=== PATIENT | male | born 1965 | race Caucasian/White ===

== ENCOUNTER → 2017-05-14 | Outpatient (CLI) | payer OTHER ==
--- NOTE | 2017-05-15 09:04 | XR ---
Exam: Left humerus complete 2 views left humerus were obtained. HISTORY: Left biceps strain. FINDINGS: No acute fracture or subluxation is identified. Mild degenerative changes are noted in the acromiocla vicular joint. Visualized hemithorax is unremarkable. IMPRESSION: No significant findings.
== END | disposition home or self-care (01) ==
LOC: RADXRMAIN 13:30
PROVIDERS: ATTEND Emergency Medicine
DX: S46.212A Strain of muscle, fascia and tendon of other parts of biceps, left arm, initial encounter (principal)

== ENCOUNTER → 2017-05-20 | Outpatient (CLI) | payer OTHER ==
--- NOTE | 2017-05-20 23:12 | MR ---
EXAMINATION TYPE: MR humerus LT wo con DATE OF EXAM: 05/20/2017 COMPARISON: NONE HISTORY: pain, swelling, brusing on left bicep area Standard multiplanar, multisequence MRI departmental protocol Multiplanar, multisequence images of the left humerus were acquired. FINDINGS: The left humerus has normal signal pattern without evidence of a fracture. Shoulder joint a nd elbow joint appear intact. There is a 6 x 4 cm area of abnormal increased signal on the T1 images in the proximal end of the bic eps muscle belly. This is consistent with intramuscular bruising and hemorrhage. There appears to be fluid extending along the biceps tendon up to the bicipital groove on the humeral head. I see no retr action of the biceps tendon. IMPRESSION: Increased signal in the proximal biceps muscle consistent with bruising and hemorrhage. I do not see evidence of a biceps tendon retraction.
== END | disposition home or self-care (01) ==
LOC: RADMRIMAIN 14:13
PROVIDERS: ATTEND Emergency Medicine
DX: S46.212A Strain of muscle, fascia and tendon of other parts of biceps, left arm, initial encounter (principal)

== ENCOUNTER 2021-02-03 15:34 | Emergency (ER) | payer OTHER ==
[2021-02-03 15:44] VITALS: BP 152/103; PULSE 82; RESP 18; TEMP 98.3
[2021-02-03] MEDS ORDERED: LIDOCAINE 1% INJ 10MG/ML (20 ML MDV) SQ ONE (15:55)
--- NOTE | 2021-02-03 16:02 | ED ---
General Adult HPI - General Chief complaint: Extremity Injury, Upper Stated complaint: Fall/arm injury [facility] Time Seen by Provider: 02/03/21 15:46 Source: patient Mode of arrival: ambulatory Limitations: no limitations - History of Present Illness Initial comments: 55-year-old male presents to emergency department with a chief complaint of a fall and laceration. Patient reports this occurred about 2 hours prior to arrival. Patient reports he suffered a slip and fall incident while he was at work. States he fell mostly on the left side of his body and the first part of contact with the shoulder. Patient states his arm was tucked him when he fell but now reports that her range of motion with abduction above 90 in the left shoulder. Denies any paresthesias or weakness. Also reports a laceration on the ventral aspect of the left breast but has full range of motion in the wrist and fingers. Tetanus is up-to-date. Reports minimal pain at this pain. No blood thinners. No head injuries. No loss of consciousness. - Related Data Allergies Allergy/AdvReac Type Severity Reaction Status Date / Time No Known Allergies Allergy Verified 02/03/21 15:40 Review of Systems ROS Statement: Those systems with pertinent positive or pertinent negative responses have been documented in the HPI. ROS Other: All systems not noted in ROS Statement are negative. Past Medical History Past Medical History: No Reported History History of Any Multi-Drug Resistant Organisms: None Reported Past Surgical History: Orthopedic Surgery Past Psychological History: No Psychological Hx Reported Smoking Status: Never smoker Past Alcohol Use History: None Reported Past Drug Use History: None Reported General Exam Limitations: no limitations General appearance: alert, in no apparent distress Head exam: Present: atraumatic, normocephalic, normal inspection Eye exam: Present: normal appearance, PERRL, EOMI Pupils: Present: normal accommodation ENT exam: Present: normal exam, normal oropharynx, mucous membranes moist, TM's normal bilaterally, normal external ear exam Neck exam: Present: normal inspection, full ROM. Absent: tenderness Respiratory exam: Present: normal lung sounds bilaterally. Absent: respiratory distress Cardiovascular Exam: Present: regular rate, normal rhythm, normal heart sounds. Absent: systolic murmur Extremities exam: Present: tenderness (Tenderness over the anterior lateral aspect of the left deltoid.), normal capillary refill, other (Palpable ulnar and radial pulses bilaterally. Sensation intact in the left arm.). Absent: normal inspection (Flap forming laceration on the left wrist.), full ROM (Limited range of motion with abduction at 90 and the left shoulder.), pedal edema, joint swelling, calf tenderness Back exam: Present: normal inspection, full ROM. Absent: tenderness Neurological exam: Present: alert, oriented X3 Psychiatric exam: Present: normal affect, normal mood Skin exam: Present: warm, dry, intact, normal color Course Vital Signs 02/03/21 15:40 Temperature 98.3 F Pulse Rate 82 Respiratory 18 Rate Blood Pressure 152/103 O2 Sat by Pulse 99 Oximetry Procedures - Laceration Laceration #1 Consent Obtained: verbal consent Indication: laceration Site: upper extremity Size (cm): 2 Description: flap, clean Depth: simple, single layer Sedation/Analgesia: none Anesthetic Used: lidocaine 1% Anesthesia Technique: local infiltration Amount (mls): 3 Pre-repair: irrigated extensively, deep structures intact Type of Sutures: nylon Size of Sutures: 4-0 Number of Sutures: 4 Technique: simple, interrupted Patient Tolerated Procedure: well, no complications Medical Decision Making - Medical Decision Making 55-year-old male presents to emergency department with a chief complaint of a fall and laceration. On physical examination, laceration about 2 cm on the ventral aspect of the left wrist. No scaphoid tenderness. Otherwise neurovascularly intact in the left arm. X-ray of the left shoulder is unremarkable. Laceration site was thoroughly irrigated with Betadine and saline water. It was repaired with 4 sutures. Patient to the procedure well. Return parameters discussed the patient is an attending agreeable. Disposition Clinical Impression: Fall, Injury of left shoulder, Laceration Disposition: HOME SELF-CARE Condition: Stable Instructions (If sedation given, give patient instructions): Care For Your Stitches (DC), Laceration (DC) Additional Instructions: Please return to the emergency room in 8-10 days to have sutures removed. Please watch for any signs of infection which may include increased pain, swelling, redness, fever or chills. Please return to emergency room for any signs of infection do occur. Please use clean soap and water over the area to prevent scabbing over your stitches. Please leave wound covered for the first 24-48 hours and then leave wound open to air. Please return to the emergency room for any other concerns. Is patient prescribed a controlled substance at d/c from ED?: No Referrals: [facility],Clinic [Primary Care Provider] - 1-2 days Time of Disposition: 16:49
--- NOTE | 2021-02-03 16:21 | XR ---
EXAMINATION TYPE: XR shoulder complete LT DATE OF EXAM: 02/03/2021 CLINICAL HISTORY: Slip and fall injury with pain. TECHNIQUE: Three views of the left shoulder are obtained. COMPARISON: Left humerus x-ray May 14, 2017. FINDINGS: There is no acute fracture/dislocation evident in the left shoulder. Mild to moderate narr owing greatest inferiorly at the acromioclavicular joint with mild spurring. Glenohumeral joint is pr eserved . The visualized ribs are intact and unremarkable. IMPRESSION: There is no acute fracture or dislocation in the left shoulder.
== END 2021-02-03 17:03 | disposition home or self-care (01) ==
LOC: EC 15:34
DX: S41.112A Laceration without foreign body of left upper arm, initial encounter (principal); S49.92XA Unspecified injury of left shoulder and upper arm, initial encounter; W01.0XXA Fall on same level from slipping, tripping and stumbling without subsequent striking against object, initial encounter
CPT/HCPCS: 99283; 12001; 73030; J2001

== ENCOUNTER 2021-02-04 15:40 | Emergency (ER) | payer OTHER ==
[2021-02-04 16:03] VITALS: RESP 20; TEMP 98.4
[2021-02-04] MEDS ORDERED: KETOROLAC 15 MG/ML 1 ML VIAL IM STA (16:21)
[2021-02-04] MEDS ORDERED: KETOROLAC 15 MG/ML 1 ML VIAL IVP STA (16:42)
[2021-02-04 16:47] LABS: Basophils # (A) 0.1 k/uL (0-0.2); Basophils % (A) 0 %; Eosinophils # (A) 0.2 k/uL (0-0.7); Eosinophils % (A) 2 %; HGB 16.2 gm/dL (13.0-17.5); Lymphocytes # (A) 1.3 k/uL (1.0-4.8); Lymphocytes % (A) 11 %; MCH 33.4 pg (25.0-35.0); MCHC 35.2 g/dL (31.0-37.0); MCV 94.7 fL (80.0-100.0); Mean Platelet Volume 9.4; Monocytes # (A) 0.7 k/uL (0-1.0); Monocytes % (A) 6 %; Neutrophils # (A) 8.9 k/uL (1.3-7.7); Neutrophils % (A) 79 %; Platelet Count 210 k/uL (150-450); RBC 4.85 m/uL (4.30-5.90); RDW 12.8 % (11.5-15.5); WBC 11.3 k/uL (3.8-10.6)
--- NOTE | 2021-02-04 16:52 | ED ---
Wound/Laceration HPI - General Chief Complaint: Wound/Laceration Stated Complaint: Revisit/Problem bo Charles Time Seen by Provider: 02/04/21 16:15 Source: patient, RN notes reviewed Mode of arrival: ambulatory Limitations: no limitations - History of Present Illness Initial Comments: Patient is a 55-year-old male that presents to emergency department complaining of increased redness and tenderness to a left wrist laceration that was repaired yesterday in the ER. He notes that he was not certain antibiotics. Notes that today the area was red and he had streaking up his left arm. Patient noted that he tried to go to work today and do a little bit but was sent here for further evaluation. He does have a follow-up appointment tomorrow in the morning. He denied any other issues or complaints. He was otherwise a well-appearing 55-year-old male in no apparent distress or pain. He denied any chest pain shortness of breath headache nausea vomiting diarrhea constipation fever fatigue chills. - Related Data Previous Rx's Medication Instructions Recorded Amoxicillin/Potassium Clav 1 tab PO Q12HR #20 tab 02/04/21 [Augmentin 875-125 Tablet] Allergies Allergy/AdvReac Type Severity Reaction Status Date / Time No Known Allergies Allergy Verified 02/04/21 16:03 Review of Systems ROS Statement: Those systems with pertinent positive or pertinent negative responses have been documented in the HPI. ROS Other: All systems not noted in ROS Statement are negative. Past Medical History Past Medical History: No Reported History History of Any Multi-Drug Resistant Organisms: None Reported Past Surgical History: Orthopedic Surgery Additional Past Surgical History / Comment(s): rt rotator cuff Past Psychological History: No Psychological Hx Reported Smoking Status: Never smoker Past Alcohol Use History: None Reported Past Drug Use History: None Reported General Exam Limitations: no limitations General appearance: alert, in no apparent distress Head exam: Present: atraumatic, normocephalic, normal inspection Eye exam: Present: normal appearance, PERRL, EOMI. Absent: scleral icterus, conjunctival injection, periorbital swelling Neck exam: Present: normal inspection Respiratory exam: Present: normal lung sounds bilaterally. Absent: respiratory distress, wheezes, rales, rhonchi, stridor Cardiovascular Exam: Present: regular rate, normal rhythm, normal heart sounds. Absent: systolic murmur, diastolic murmur, rubs, gallop, clicks Extremities exam: Present: normal inspection, full ROM, normal capillary refill, other (Ventral left wrist repaired laceration with surrounding erythematous, warmth with streaking of the left arm.). Absent: tenderness, pedal edema, joint swelling, calf tenderness Neurological exam: Present: alert, oriented X3 Psychiatric exam: Present: normal affect, normal mood Skin exam: Present: warm, dry, intact, normal color. Absent: rash Course Vital Signs 02/04/21 16:00 Temperature 98.4 F Pulse Rate 90 Respiratory 20 Rate Blood Pressure 143/97 O2 Sat by Pulse 95 Oximetry Medical Decision Making - Medical Decision Making 55-year-old male with erythema and tenderness surrounding a laceration repaired yesterday. Basic labs ordered. Case discussed with Dr. Guadalupe, patient will be discharged home with antibiotic . Patient has a thrombophlebitis. - Lab Data Result diagrams: 02/04/21 16:35 Lab Results 02/04/21 Range/Units 16:35 WBC 11.3 H (3.8-10.6) k/uL RBC 4.85 (4.30-5.90) m/uL Hgb 16.2 (13.0-17.5) gm/dL Hct 46.0 (39.0-53.0) % MCV 94.7 (80.0-100.0) fL MCH 33.4 (25.0-35.0) pg MCHC 35.2 (31.0-37.0) g/dL RDW 12.8 (11.5-15.5) % Plt Count 210 (150-450) k/uL MPV 9.4 Neutrophils % 79 % Lymphocytes % 11 % Monocytes % 6 % Eosinophils % 2 % Basophils % 0 % Neutrophils # 8.9 H (1.3-7.7) k/uL Lymphocytes # 1.3 (1.0-4.8) k/uL Monocytes # 0.7 (0-1.0) k/uL Eosinophils # 0.2 (0-0.7) k/uL Basophils # 0.1 (0-0.2) k/uL Disposition Clinical Impression: Laceration, Thrombophlebitis Disposition: HOME SELF-CARE Condition: Stable Additional Instructions: Please return to the Emergency Department if symptoms worsen or any other concerns. Follow-up with primary care 1-2 days. Take antibiotics as prescribed until complete. Code follow-up appointment as planned. Is patient prescribed a controlled substance at d/c from ED?: No Referrals: [facility],Clinic [Primary Care Provider] - 1-2 days Time of Disposition: 16:52
[2021-02-04 16:54] LABS: ALT 52 U/L (4-49); AST 61 U/L (17-59); African American GFR (CKD) >90 (>60 ml/min/1.73 sqM); Albumin 4.8 g/dL (3.5-5.0); Alkaline Phosphatase 76 U/L (38-126); Anion Gap 11 mmol/L; Blood Urea Nitrogen 12 mg/dL (9-20); Carbon Dioxide 25 mmol/L (22-30); Chloride 102 mmol/L (98-107); Glucose 109 mg/dL (74-99); Non-African American GFR(CKD) >90 (>60 ml/min/1.73 sqM); Sodium 138 mmol/L (137-145); Total Protein 7.9 g/dL (6.3-8.2)
[2021-02-04 16:58] LABS: Potassium 5.1 mmol/L (3.5-5.1)
[2021-02-04 17:23] VITALS: BP 138/78; PULSE 85
== END 2021-02-04 17:23 | disposition home or self-care (01) ==
LOC: EC 15:40
DX: S61.512D Laceration without foreign body of left wrist, subsequent encounter (principal); I80.9 Phlebitis and thrombophlebitis of unspecified site; X58.XXXD Exposure to other specified factors, subsequent encounter
CPT/HCPCS: 99283; 96374; 36415; 80053; 85025; J1885

== ENCOUNTER → 2021-02-07 | Outpatient (CLI) | payer OTHER ==
--- NOTE | 2021-02-07 12:25 | XR ---
EXAMINATION TYPE: XR hand complete LT DATE OF EXAM: 02/07/2021 COMPARISON: NONE HISTORY: Pain and swelling TECHNIQUE: Three views are submitted. FINDINGS: The osseous structures are intact. The joint spaces are preserved and there is no acute fracture or dislocation. Corticated density adjacent to the base of the proximal phalanx fourth digit appears ch ronic. IMPRESSION: 1. No definite acute fracture or dislocation if symptoms persist, follow-up study in 7 to 10 days wo uld be suggested
--- NOTE | 2021-02-07 12:26 | XR ---
EXAMINATION TYPE: XR forearm LT DATE OF EXAM: 02/07/2021 COMPARISON: NONE HISTORY: Pain and swelling Two views of the forearm demonstrate that the osseous structures appear to be intact and the joint sp aces appear to be preserved. There is no acute fracture or dislocation. Ulnar olecranon spur. Well- corticated density adjacent to the medial malleolus likely vascular. Correlate for soft tissue edema. IMPRESSION: 1. No acute fracture or dislocation
--- NOTE | 2021-02-07 12:27 | XR ---
EXAMINATION TYPE: XR wrist complete LT DATE OF EXAM: 02/07/2021 COMPARISON: NONE HISTORY: Swelling TECHNIQUE: Four views submitted. FINDINGS: The osseous structures are intact. Arthropathy of the first MCP. There is no acute fracture or disloc ation. Soft tissue edema along the ulnar side of the wrist not excluded correlate clinically. IMPRESSION: 1. No definite acute fracture or dislocation if symptoms persist, follow-up study in 7 to 10 days wo uld be suggested
== END | disposition home or self-care (01) ==
LOC: RADXRMAIN 11:45
PROVIDERS: ATTEND Emergency Medicine
DX: M79.642 Pain in left hand (principal); M79.632 Pain in left forearm; R22.32 Localized swelling, mass and lump, left upper limb

== ENCOUNTER → 2021-02-23 | Outpatient (CLI) | payer OTHER ==
--- NOTE | 2021-02-23 18:23 | MR ---
EXAMINATION TYPE: MR shoulder LT wo con DATE OF EXAM: 02/23/2021 COMPARISON: None HISTORY: Left shoulder pain, contusion, fall 02-03-21. Multiplanar multiecho imaging of the left shoulder without contrast. There is hypertrophic spurring at the AC joint. There is obliteration of the subacromial joint space. There is retraction of the supraspinatus tendon. There is inferior spur formation at the AC joint an d subacromial impingement. There is shoulder joint effusion. There is wavy appearance of the subscapularis tendon consistent wit h a partial tear. The glenoid linden appear intact. There is no evidence of a fracture. IMPRESSION: Large rotator cuff tear with retraction of the supraspinatus tendon. Subacromial joint space narrowin g and impingement. Partial tear of the subscapularis tendon. Shoulder joint effusion.
== END | disposition home or self-care (01) ==
LOC: RADMRIMAIN 10:37
PROVIDERS: ATTEND Emergency Medicine
DX: S46.012A Strain of muscle(s) and tendon(s) of the rotator cuff of left shoulder, initial encounter (principal); M25.412 Effusion, left shoulder

== ENCOUNTER → 2021-03-13 | Outpatient (CLI) | payer OTHER ==
[2021-03-13 11:30] LABS: Basophils # (A) 0.1 k/uL (0-0.2); Basophils % (A) 1 %; Eosinophils # (A) 0.1 k/uL (0-0.7); Eosinophils % (A) 2 %; HCT 45.8 % (39.0-53.0); HGB 15.2 gm/dL (13.0-17.5); Lymphocytes # (A) 1.4 k/uL (1.0-4.8); Lymphocytes % (A) 21 %; MCH 31.8 pg (25.0-35.0); MCHC 33.3 g/dL (31.0-37.0); MCV 95.6 fL (80.0-100.0); Mean Platelet Volume 8.9; Monocytes # (A) 0.7 k/uL (0-1.0); Monocytes % (A) 11 %; Neutrophils % (A) 62 %; Platelet Count 193 k/uL (150-450); RBC 4.79 m/uL (4.30-5.90); RDW 12.7 % (11.5-15.5); WBC 6.4 k/uL (3.8-10.6)
[2021-03-13 11:48] LABS: African American GFR (CKD) >90 (>60 ml/min/1.73 sqM); Anion Gap 7 mmol/L; Blood Urea Nitrogen 15 mg/dL (9-20); Calcium 9.8 mg/dL (8.4-10.2); Carbon Dioxide 27 mmol/L (22-30); Chloride 105 mmol/L (98-107); Glucose 113 mg/dL (74-99); Non-African American GFR(CKD) >90 (>60 ml/min/1.73 sqM); Potassium 4.6 mmol/L (3.5-5.1); Sodium 139 mmol/L (137-145)
== END | disposition home or self-care (01) ==
LOC: LABWHC1 10:32
PROVIDERS: ATTEND Orthopaedic Surgery
DX: Z01.818 Encounter for other preprocedural examination (principal); M75.42 Impingement syndrome of left shoulder
CPT/HCPCS: 36415; 80048; 85025; 93005

== ENCOUNTER 2021-03-21 08:07 | Day surgery (SDC) | payer OTHER ==
--- NOTE | 2021-03-19 13:35 | HP ---
HISTORY AND PHYSICAL CHIEF COMPLAINT: Left shoulder pain. HISTORY OF PRESENT ILLNESS: The patient is a 55-year-old [id number] male who presents with left shoulder pain after an injury at work on 02/03/2021. He slipped on the floor at [employer] and landed on his left side. He has been having pain with any attempted overhead use since. He has also noted significant weakness. He has been off work since his injury. He denies significant previous problems. PAST MEDICAL HISTORY: Otherwise negative. CURRENT MEDICATIONS: Ibuprofen. PAST SURGICAL HISTORY: Significant for right rotator cuff repair. ALLERGIES: He notes allergies to AMOXICILLIN. FAMILY HISTORY: Significant for cancer. SOCIAL HISTORY: Significant for chewing tobacco use. REVIEW OF SYSTEMS: Sixteen-point review of systems is otherwise reviewed and noncontributory. PHYSICAL EXAMINATION: On examination, the patient is approximately 5 feet 6 inches, 215 pounds of endomorphic habitus. HEENT exam is nonfocal. Neck is supple. On examination of his left shoulder, he is tender about the anterior subacromial space. He has moderate crepitus. Active range of motion: Forward elevation to 145 degrees, external rotation with arm to side 60 degrees, internal rotation to L2. Motor strength 4 minus over 5 for external rotation with the arm to the side, 3/5 for abduction. Impingement test is positive. Neer test and Speed test were also positive. His distal neurovascular exam appears intact in the left upper extremity. X-rays of the left shoulder obtained in the office, including AP, lateral and outlet views show a type 2 acromion. There is a cystic appearance of the greater tuberosity. The humeral head to acromial distance appears to be maintained. MRI report shows evidence of a retracted rotator cuff tear. IMPRESSION: Left large retracted rotator cuff tear. RECOMMENDATIONS: I talked to the patient at length regarding his condition along with treatment options. With the acute nature of his injury, I would recommend proceeding with surgical intervention. We will plan to proceed with arthroscopic evaluation with probable rotator cuff repair. Risks and benefits were discussed at length in layman's terms. MMODL / IJN: [id number] /
[2021-03-19 14:05] VITALS: BMI 34.7
[~2021-03-21 08:07] MED LIST: DEXAMETHASONE SOD PHOSPHATE 4 MG/ML 1 ML VIAL IV ONE; HYDROmorphone 0.5 MG/0.5 ML SYRINGE IVP PRN; LACTATED RINGERS 1,000 ML IV SCH; MIDAZOLAM 2 MG/2 ML VIAL IV PRN; ONDANSETRON 4 MG/2 ML VIAL IVP ONE; SCOPOLAMINE 1.5MG/72HR PATCH TRANSDERM ONE
[2021-03-21] MEDS ORDERED: LIDOCAINE 1% (10MG/ML) FOR IV START INTRADERMA ONE (08:53)
[2021-03-21] MEDS ORDERED: fentaNYL (PF) 50 MCG/ML 2 ML AMP IVP ONE (09:11)
[2021-03-21] MEDS ORDERED: MIDAZOLAM 2 MG/2 ML VIAL IVP ONE (09:11)
[2021-03-21] MEDS ORDERED: SUCCINYLCHOLINE CHLORIDE 100 MG/5 ML SYR IV ONE (09:20)
[2021-03-21] MEDS ORDERED: ROCURONIUM 10 MG/ML (5 ML VIAL) IV ONE (09:20)
[2021-03-21] MEDS ORDERED: LIDOCAINE 1% INJ 10MG/ML (20 ML MDV) ONE (09:20)
[2021-03-21] MEDS ORDERED: PROPOFOL 10 MG/ML 20 ML VIAL IV ONE (09:20)
[2021-03-21] MEDS ORDERED: NEOSTIGMINE 1 MG/ML 10 ML VIAL ONE (09:20)
[2021-03-21] MEDS ORDERED: PHENYLEPHRINE-0.9% NACL SYG 1,000 MCG/10 ML SYRINGE ONE (09:20)
[2021-03-21] MEDS ORDERED: ROPIVACAINE 5 MG/ML 30 ML VIAL ONE (09:20)
[2021-03-21] MEDS ORDERED: ePHEDrine 50 MG/ML 1 ML AMP ONE (09:20)
[2021-03-21] MEDS ORDERED: GLYCOPYRROLATE 0.2 MG/ML 2 ML VIAL ONE (09:20)
[2021-03-21] MEDS ORDERED: EPINEPHrine (PF) 1 ML in SODIUM CHLORIDE 0.9% IRRIGATIO 3,000 ML IRRIGATION ONE ×8 (09:50)
[2021-03-21] MEDS ORDERED: LACTATED RINGERS 1,000 ML IV ONE (10:45)
--- NOTE | 2021-03-21 11:15 | P.OP ---
Date of Procedure: 03/21/21 Preoperative Diagnosis: Acute left rotator cuff tear Postoperative Diagnosis: Same in addition to medial subluxation of the long head of the biceps Procedure(s) Performed: Left shoulder arthroscopic subacromial decompression/biceps tenotomy/rotator cuff repair Implants: Arthrex 4.75 mm swivel lock anchor 2, 5.5 mm swivel lock anchor 2 Anesthesia: chava LOW Surgeon: Jagdish Maradiaga Seismology Teacher #1: Anibal Garland Estimated Blood Loss (ml): 10 Pathology: none sent Condition: stable Disposition: PACU Indications for Procedure: The patient's a 55-year-old male who presents after an injury at work with evidence of an acute left rotator cuff tear. A discussion of risks and benefits of operative intervention versus conservative measures was made with patient. He opted to proceed with surgery. Operative risks to include infection, neurovascular injury, development of blood clots, possible postoperative stiffness, possible tendon rerupture need for subsequent procedures was discussed. Informed consent was obtained. Operative Findings: As below Description of Procedure: The patient was brought to the operating room, and after induction of general anesthesia was placed in a beachchair position. A preoperative interscalene block was placed for postoperative analgesia. I examined the left shoulder. There was no gross block to passive motion or gross glenohumeral instability. The left upper extremity was prepped and draped in normal fashion. The bony outlines the acromion, distal clavicle, and coracoid process were outlined with a skin marker. The glenohumeral joint was inflated with 50 mL of saline utilizing a spinal needle from posterior approach. A posterior portal was made through a 5 mm skin incision 1 cm medial and inferior to the posterior lateral border time. A blunt trocar was used to easily into the joint. Diagnostic arthroscopy was performed. An anterior portal was made just lateral to the coracoid process entering the joint above the subscapularis tendon. The subscapularis tendon appeared to be intact. Anterior labrum was intact. The inferior recess was inspected. The posterior labrum was intact. There was medial subluxation of the long head of the biceps involving interarticular portion. It was elected to proceed with release at this point. This was released from the superior labrum with electrocautery and was allowed to retract to the bicipital groove. On inspection the rotator cuff, a large tear involving the supraspinatus and infraspinatus was noted with some retraction. The arthroscope was then placed into the subacromial space. A lateral portal was made 2 centimeters inferior to the anterior lateral border of the acromion. The rotator cuff was then mobilized with a traction suture. This was then brought back to the greater tuberosity. The soft tissue on the undersurface of the acromion was debrided with a motorized shaver and electrocautery clearly defining the anterior medial and lateral borders as well as the distal clavicle. An anterior inferior acromioplasty was performed with a motorized garcía starting anterolateral, then extending this posteriorly, then extending this medially. I converted to a flat acromion and this was verified in the posterior and lateral viewing portals. The greater tuberosity was lightly decorticating with a shaver down to a bleeding bony surface. An accessory superior lateral portals made just off the lateral edge of the acromion for anchor placement. 2 anchors were then placed just off the articular surface with the appropriate starting awl. 4.75 mm anchors preloaded with #2 fiber tape were placed. Good purchase was obtained. These fiber tapes were then passed the rotator cuff with a scorpion suture passer. A lateral row was created crisscrossing these tapes. 5.5 mm swivel lock anchors x2 were placed laterally. Good purchase was obtained. Final arthroscopic view showed adequate compression at the footprint. The arthroscope was then removed. The portals were closed with simple 3-0 nylon sutures. A sterile dressing was applied in addition to an abductor brace. The patient was then awoken from general anesthesia and transferred to recovery room in good condition. Blood loss was estimated at 10 mL. No complications were incurred. Sponge and needle counts were correct in the case. Anibal BOURGEOIS assisted and the major components of the case to include arm positioning, anchor placement, and rotator cuff repair.
[2021-03-21 11:31] VITALS: TEMP 97.7
[2021-03-21 11:55] VITALS: RESP 20
[2021-03-21 12:52] VITALS: BP 124/70; PULSE 70
--- NOTE | 2021-03-21 13:27 | P.ANPRN ---
Procedure Note - Anesthesia - Nerve Block Performed Left Interscalene Single Time Out Performed: Yes (910) Date of Procedure: 03/21/21 Procedure Start Time: 09:11 Procedure Stop Time: 09:16 Location of Patient: PreOp Indication: Acute Post-Operative Pain, Requested by Surgeon Specifically requested for management of pain by : Jagdish Maradiaga Sedation Type: Sedate with meaningful contact maintained Preparation: Sterile Prep Position: Supine Catheter: None Needle Types: Pajunk Needle Gauge: 21 Ultrasound used to visualize needle placement: Yes Ultrasound used to observe medication spread: Yes Injectate: 0.5% Ropivacaine (see comment for volume) (30cc) Blood Aspirated: No Pain Paresthesia on Injection Noted: No Resistance on Injection: Normal Image Stored and Saved: Yes Events: Uneventful and Well Tolerated
== END 2021-03-21 12:51 | disposition home or self-care (01) ==
LOC: OR 08:07
PROVIDERS: ATTEND Orthopaedic Surgery
DX: S46.012A Strain of muscle(s) and tendon(s) of the rotator cuff of left shoulder, initial encounter (principal); S43.082A Other subluxation of left shoulder joint, initial encounter; W01.0XXA Fall on same level from slipping, tripping and stumbling without subsequent striking against object, initial encounter; E78.5 Hyperlipidemia, unspecified; Z87.891 Personal history of nicotine dependence; K21.9 Gastro-esophageal reflux disease without esophagitis; Z79.1 Long term (current) use of non-steroidal anti-inflammatories (NSAID); Z88.0 Allergy status to penicillin
CPT/HCPCS: 64415; 76942; 29826; 29827; C1713 ×3; C1894; J2250; J1100; J2710; J0690; J2405; J0171; J2001; J3010; J2795; J2370; J0330; J2704

== ENCOUNTER 2024-10-31 09:47 | Day surgery (SDC) | payer OTHER ==
[2024-10-31 10:33] VITALS: RESP 16; TEMP 97.9
[2024-10-31] MEDS: IV FLUID CONTINUATION 1,000 ML IV ONE (10:42)
[2024-10-31] MEDS: LACTATED RINGERS 1,000 ML IV SCH (10:54)
[2024-10-31] MEDS ORDERED: PROPOFOL 10 MG/ML 20 ML VIAL IV ONE (11:22)
--- NOTE | 2024-10-31 11:38 | P.PCN ---
Date of Procedure: 10/31/24 Procedure(s) Performed: BRIEF HISTORY: Patient is a 58-year-old pleasant white male scheduled for an elective colonoscopy as a part of screening for colon cancer. PROCEDURE PERFORMED: Colonoscopy with biopsy. PREOPERATIVE DIAGNOSIS: Screening for colon cancer. IV sedation per Anesthesia. PROCEDURE: After informed consent was obtained, the patient, was brought into the endoscopy unit. IV sedation was administered by Anesthesia under continuous monitoring. Digital rectal examination was normal. Initially the Olympus CF-160 flexible video colonoscope was then inserted in the rectum, gradually advanced into the cecum without any difficulty. Careful examination was performed as the scope was gradually being withdrawn. Ileocecal valve and the appendiceal orifice were visualized and appeared normal. Prep was excellent. Mucosa of the cecum had a 3 mm polyp that was removed by cold biopsy. Rest of the, ascending colon, transverse colon, descending colon, sigmoid colon, and rectum appeared normal. In the proximal rectum there was a 4 mm polyp removed by cold biopsy. Scattered sigmoid diverticulosis seen. Retroflexion was performed in the rectum and no lesions were seen. The patient tolerated the procedure well. IMPRESSION: 3 mm cecal polyp status post cold biopsy 4 mm proximal rectal polyp status post cold biopsy Scattered sigmoid diverticulosis RECOMMENDATIONS: Findings of this examination were discussed with the patient as well as his family. He was advised to follow with the biopsy results. If the biopsy reveals adenoma, recommended repeat colonoscopy in 5 years
[2024-10-31 11:55] VITALS: BP 115/78; PULSE 81
== END 2024-10-31 12:12 | disposition home or self-care (01) ==
LOC: ORWHC2ENDO 09:47
PROVIDERS: ATTEND Internal Medicine Gastroenterology
DX: Z12.11 Encounter for screening for malignant neoplasm of colon (principal); D12.0 Benign neoplasm of cecum; K57.30 Diverticulosis of large intestine without perforation or abscess without bleeding; E78.5 Hyperlipidemia, unspecified; Z88.0 Allergy status to penicillin; Z79.899 Other long term (current) drug therapy
CPT/HCPCS: 88305; 45380; J2704